=== PATIENT | male | born 1965 | race Hispanic/Latino ===

== ENCOUNTER 2017-03-10 23:11 | Emergency (ER) | payer MEDICARE ==
[2017-03-10 23:30] VITALS: BMI 28.6
[2017-03-10 23:33] VITALS: BP 155/102; PULSE 106; RESP 18; TEMP 98.2; O2SAT 95
--- NOTE | 2017-03-11 00:47 | CT ---
EXAM: CT Head Without Intravenous Contrast CLINICAL HISTORY: 51 years old, male; Injury or trauma; Fall; Additional info: Head trauma TECHNIQUE: Axial computed tomography images of the head/brain without intravenous contrast. All CT scans at this facility use one or more dose reduction techniques, viz.: automated exposure control; ma/kV adjustment per patient size (including targeted exams where dose is matched to indication; i.e. head); or iterative reconstruction technique. Coronal and sagittal reformatted images were created and reviewed. COMPARISON: No relevant prior studies available. FINDINGS: Brain: White matter hypoattenuation most consistent with chronic ischemic small vessel changes. No hemorrhage. No edema. Ventricles: No hydrocephalus. Bones: Skull is intact. Soft tissues: Left parietal skin hai. Sinuses: Partial visualization of at least moderate left maxillary sinus mucosal thickening. Remainder of visualized paranasal sinus disease appears mild. Mastoid air cells: Partial opacification of right mastoid air cells. IMPRESSION: No CT evidence of acute intracranial abnormality. Please see details/findings as above.
--- NOTE | 2017-03-11 00:59 | ED PDOC ---
HPI: Head Injury Time Seen by Provider: 03/10/17 23:39 Chief Complaint (Nursing): Abnormal Skin Integrity Chief Complaint (Provider): head injury History Per: Patient History/Exam Limitations: no limitations Onset/Duration Of Symptoms: Hrs (x1) Additional Complaint(s): 51 year old male with previous medical history of hypertension, who presents to the emergency department for an evaluation of head laceration status post injuring head at home after admitting to drinking alcohol tonight. Denied any headache, loss of consciousness, vomiting, neck pain, back pain or other bodily injuries. PMD: Garrett Blandon MD Past Medical History Reviewed: Historical Data, Nursing Documentation, Vital Signs Vital Signs: Last Vital Signs Temp 98.2 F 03/10/17 23:30 Pulse 106 H 03/10/17 23:30 Resp 18 03/10/17 23:30 BP 155/102 H 03/10/17 23:30 Pulse Ox 95 03/10/17 23:30 - Medical History PMH: HTN - Surgical History Surgical History: Coronary Stent (8) - Family History Family History: States: Unknown Family Hx - Social History Current smoker - smoking cessation education provided: Yes Alcohol: > 2 Drinks/Day Drugs: Other - Immunization History Hx Tetanus Toxoid Vaccination: Yes Hx Influenza Vaccination: No Hx Pneumococcal Vaccination: No - Home Medications Home Medications: Ambulatory Orders Medication Instructions Recorded Altace 1 tab PO DAILY 05/05/13 Ambien 1 tab PO DAILY 05/05/13 Coreg 1 tab PO DAILY 05/05/13 Crestor 1 tab PO DAILY 05/05/13 Ecotrin 81 mg PO DAILY 05/05/13 Xanax 1 tab PO DAILY 05/05/13 Naproxen [Naprosyn] 1 tab PO BID PRN #20 tab 09/25/16 - Allergies Allergies/Adverse Reactions: Allergies Allergy/AdvReac Type Severity Reaction Status Date / Time Penicillins Allergy RASH Verified 03/10/17 23:30 bee sting Allergy RASH Uncoded 03/10/17 23:30 Review of Systems ROS Statement: Except As Marked, All Systems Reviewed And Found Negative Gastrointestinal: Negative for: Vomiting Musculoskeletal: Negative for: Neck Pain, Back Pain, Other (bodily injuries) Neurological: Positive for: Other (head laceration). Negative for: Headache ( or LOC) Physical Exam - Reviewed Nursing Documentation Reviewed: Yes Vital Signs Reviewed: Yes - Physical Exam Appears: Positive for: Well, Non-toxic, No Acute Distress Head Exam: Positive for: ATRAUMATIC, NORMAL INSPECTION, NORMOCEPHALIC Skin: Positive for: Normal Color Eye Exam: Positive for: Normal appearance ENT: Positive for: Normal ENT Inspection Neck: Positive for: Normal, Painless ROM Cardiovascular/Chest: Positive for: Regular Rate, Rhythm, Chest Non Tender Respiratory: Positive for: Normal Breath Sounds. Negative for: Decreased Breath Sounds, Wheezing, Respiratory Distress Gastrointestinal/Abdominal: Positive for: Normal Exam, Soft. Negative for: Tenderness Back: Positive for: Normal Inspection. Negative for: L CVA Tenderness, R CVA Tenderness Extremity: Positive for: Normal ROM (upper/lower). 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 Negative for: Motor/Sensory Deficits - ECG O2 Sat by Pulse Oximetry: 95 (RA) Pulse Ox Interpretation: Normal Medical Decision Making Medical Decision Making: Initial Impression: Head injury S/P alcohol ingestion Initial Plan: * CT head without contrast * Adacel 0.5ml IM Time: 0027 --CT head w/o contrast FINDINGS: Brain: White matter hypoattenuation most consistent with chronic ischemic small vessel changes. No hemorrhage. No edema. Ventricles: No hydrocephalus. Bones: Skull is intact. Soft tissues: Left parietal skin hai. Sinuses: Partial visualization of at least moderate left maxillary sinus mucosal thickening. Remainder of visualized paranasal sinus disease appears mild. Mastoid air cells: Partial opacification of right mastoid air cells. IMPRESSION: No CT evidence of acute intracranial abnormality. Please see details/findings as above. On re-evaluation, patient reports no other complaints, denies any headache, dizziness or nausea. On exam, patient remains AAOx3, in no acute distress, repeat neuro exam shows no focal findings. Diagnostic results d/w the patient in great detail. Diagnosis of head injury d/ w the patient. Advised to have hai removed after 7 days. Based on history, exam and diagnostic results, plan will be for outpatient follow up. Patient is d/c to the care of his 2 sober friends. Patient instructed to follow-up with pmd in 1-2 days without fail for re- evaluation. Return to the emergency room at any time for any new or worsening symptoms. Scribe Attestation: Documented by Lashonda Millard, acting as a scribe for Ninfa Haskins PA-C. Provider Scribe Attestation: All medical record entries made by the Scribe were at my direction and personally dictated by me. I have reviewed the chart and agree that the record accurately reflects my personal performance of the history, physical exam, medical decision making, and the department course for this patient. I have also personally directed, reviewed, and agree with the discharge instructions and disposition. Procedures - Laceration/Wound Repair Left Occipital Wound's Depth, Shape: linear Wound Explored: clean Irrigated w/ Saline (ccs): 50 Wound Repaired With: Hai (3) Layer Closure?: No Wound Complexity: Simple Progress: Patient tolerated lac repair. Disposition - Clinical Impression Clinical Impression: Head injury, Scalp laceration, Alcohol intoxication - Patient ED Disposition Is Patient to be Admitted: No Counseled Patient/Family Regarding: Studies Performed, Diagnosis, Need For Followup - Disposition Referrals: [facility] [Outside] Disposition: Routine/Home Disposition Time: 00:59 Condition: STABLE Additional Instructions: Thank you for letting us take care of you today. You were treated for head injury, scalp laceration, alcohol intoxication. The emergency medical care you received today was directed at your acute symptoms. Clean wound with regular soap and water, have sutures removed after 7days. Return to the Emergency Department if your symptoms worsen, do not improve, or if you have any other problems. Please contact your doctor in 2 days for re-evaluation and follow up / or call one of the physicians/clinics you have been referred to that are listed on the Patient Visit Information form that is included in your discharge packet. Bring any paperwork you were given at discharge with you along with any medications you are taking to your follow up visit. Our treatment cannot replace ongoing medical care by a primary care provider (PCP) outside of the emergency department. Thank you for allowing the [facility] team to be part of your care today. Instructions: Head Injury (ED), Alcohol Intoxication (ED), Acute Wound Care (ED ) Forms: [employer] (Lao) - PA / SQL SERVER DBA / Resident Statement MD/DO has reviewed & agrees with the documentation as recorded.
== END 2017-03-11 01:15 | disposition home or self-care (01) ==
LOC: H.ER 23:11
DX: F10.129 Alcohol abuse with intoxication, unspecified (principal); S01.01XA Laceration without foreign body of scalp, initial encounter; W19.XXXA Unspecified fall, initial encounter; Y92.89 Other specified places as the place of occurrence of the external cause; I10 Essential (primary) hypertension; Z79.82 Long term (current) use of aspirin; Z88.0 Allergy status to penicillin; Z95.5 Presence of coronary angioplasty implant and graft

== ENCOUNTER 2017-03-25 14:25 | Emergency (ER) | payer MEDICARE ==
[2017-03-25 14:26] VITALS: BMI 28.6
[2017-03-25 14:41] VITALS: BP 148/88; PULSE 74; RESP 18; TEMP 98.8; O2SAT 98
--- NOTE | 2017-03-25 15:25 | ED PDOC ---
HPI: Wound Care - HPI Time Seen by Provider: 03/25/17 15:15 Chief Complaint (Nursing): Suture/Staple Removal Chief Complaint (Provider): Staple removal History Per: Patient History Of Present Illness: Patient had hai placed on his left posterior scalp 2 weeks ago. He denies any new injuries, swelling or drainage from wound site. He denies any fever or chills as well. No other medical complaints. Exam Limitations: no limitations Onset/Duration Of Symptoms: Days Location Of Injury: Left: Head, Posterior: Head Past Medical History Reviewed: Historical Data, Nursing Documentation, Vital Signs Vital Signs: Last Vital Signs Temp 98.8 F 03/25/17 14:39 Pulse 74 03/25/17 14:39 Resp 18 03/25/17 14:39 BP 148/88 03/25/17 14:39 Pulse Ox 98 03/25/17 14:39 - Medical History PMH: HTN - Surgical History Surgical History: Coronary Stent (8) - Family History Family History: States: Unknown Family Hx - Immunization History Hx Tetanus Toxoid Vaccination: Yes Hx Influenza Vaccination: No Hx Pneumococcal Vaccination: No - Home Medications Home Medications: Ambulatory Orders Medication Instructions Recorded Altace 1 tab PO DAILY 05/05/13 Ambien 1 tab PO DAILY 05/05/13 Coreg 1 tab PO DAILY 05/05/13 Crestor 1 tab PO DAILY 05/05/13 Ecotrin 81 mg PO DAILY 05/05/13 Xanax 1 tab PO DAILY 05/05/13 Naproxen [Naprosyn] 1 tab PO BID PRN #20 tab 09/25/16 - Allergies Allergies/Adverse Reactions: Allergies Allergy/AdvReac Type Severity Reaction Status Date / Time Penicillins Allergy RASH Verified 03/10/17 23:30 bee sting Allergy RASH Uncoded 03/10/17 23:30 Review of Systems Constitutional: Positive for: Other (hai on left posterior scalp). Negative for: Fever, Chills Physical Exam - Reviewed Nursing Documentation Reviewed: Yes Vital Signs Reviewed: Yes - Physical Exam Appears: Positive for: Non-toxic, No Acute Distress Head Exam: Positive for: ATRAUMATIC, NORMAL INSPECTION (well healing laceration on left posterior scalp. Hai in place. No swelling, erythema or discharge noted.), NORMOCEPHALIC Skin: Positive for: Normal Color Eye Exam: Positive for: Normal appearance Neck: Positive for: Supple Neurologic/Psych: Positive for: Alert, Oriented - ECG O2 Sat by Pulse Oximetry: 98 (RA) Pulse Ox Interpretation: Normal Medical Decision Making Medical Decision Making: Impression: Staple removal Plan: -- 3 hai removed from left posterior scalp by provider. Patient tolerated procedure well. Wound well healing. Patient stable for discharge home. Scribe Attestation: Documented by Patti Callahan acting as a scribe for JOÃO Vanessa Provider Attestation: All medical record entries made by the Scribe were at my direction and personally dictated by me. I have reviewed the chart and agree that the record accurately reflects my personal performance of the history, physical exam, medical decision making, and the department course for this patient. I have also personally directed, reviewed, and agree with the discharge instructions and disposition. Disposition - Clinical Impression Clinical Impression: Removal of staple - Disposition Condition: STABLE Instructions: Staple Care (ED) Forms: [employer] (Arabic)
== END 2017-03-25 16:05 | disposition home or self-care (01) ==
LOC: H.ER 14:25
DX: Z48.02 Encounter for removal of sutures (principal)